=== PATIENT | female | born 1985 | race Caucasian/White ===

== ENCOUNTER 2017-06-14 19:17 | Emergency (ER) | payer MEDICAID ==
[~2017-06-14] VITALS: Ht 160 cm; Wt 56.2 kg
[~2017-06-14 19:17] MED LIST: AUG500 PO; COLACE100 MG PO; LAC PO; NORCO1 TA1 PO; PRILOSEC10 MG PO
[2017-06-14 19:51] VITALS: Ht 160 cm; Wt 56.2 kg
[2017-06-14 21:56] LABS: BASOPHIL % 0.5 % (0-2); PLATELET COUNT 202 x10^3mcL (130-400)
[2017-06-14 22:08] LABS: CALCIUM 8.7 mg/dL (8.5-10.1); CARBON DIOXIDE 27.4 mmol/L (21-32); CHLORIDE SERUM 104 mmol/L (98-107); CREATININE SERUM 0.6 mg/dL (0.6-1.0); GFR1 > 60 mL/min; GLUCOSE SERUM 100 mg/dL (74-106); POTASSIUM SERUM 3.9 mmol/L (3.5-5.1); SODIUM SERUM 136 mmol/L (136-145)
[2017-06-14 22:13] LABS: ALBUMIN 3.5 g/dL (3.4-5.0); ALKALINE PHOSPHATASE 58 U/L (46-116); ALT/SGPT 17 U/L (14-59); AST/SGOT 14 U/L (15-37); BILIRUBIN TOTAL 0.18 mg/dL (0.20-1.00); TOTAL PROTEIN, SERUM 6.9 g/dL (6.4-8.2)
[2017-06-14 22:27] LABS: C REACTIVE PROTEIN < 0.2 mg/dL (<=0.9)
[2017-06-14 22:58] LABS: ERYTHROCYTE SED RATE 16 mm/hr (0-20)
[2017-06-14 23:25] VITALS: BP 102/79
== END 2017-06-14 23:25 | disposition home or self-care (01) ==
LOC: ED 19:17
PROVIDERS: Emergency Medicine
DX: N76.0 Acute vaginitis (principal); N83.201 Unspecified ovarian cyst, right side
CPT/HCPCS: 36415; 87491; 87591; Q0092

== ENCOUNTER 2018-01-25 20:41 | Emergency (ER) | payer MEDICAID ==
[2018-01-25 23:09] VITALS: BP 126/75
== END 2018-01-25 23:10 | disposition home or self-care (01) ==
LOC: ED 20:41
DX: L08.82 Omphalitis not of newborn (principal); Z98.890 Other specified postprocedural states

== ENCOUNTER 2018-01-28 07:53 | Emergency (ER) | payer MEDICAID ==
[~2018-01-28] VITALS: Ht 160 cm; Wt 60.3 kg
[2018-01-28 07:58] VITALS: Ht 160 cm; Wt 60.3 kg
[2018-01-28 08:31] VITALS: BP 102/68
== END 2018-01-28 08:31 | disposition home or self-care (01) ==
LOC: ED 07:53
DX: L02.216 Cutaneous abscess of umbilicus (principal); Z90.49 Acquired absence of other specified parts of digestive tract